=== PATIENT | female | born 1970 | race Caucasian/White ===

== ENCOUNTER 2019-12-12 09:30 | Outpatient (CLI) | payer BC, SELFPAY ==
--- NOTE | ~2019-12-12 | XR_ITS ---
XR ankle LT min 3V DATE: 12/12/2019 09:51 INDICATION: Twisted left ankle. Lateral pain. TECHNIQUE: 4 views COMPARISON: None FINDINGS: No fracture or dislocation of the ankle or disruption of the ankle mortise. No periosteal r eaction or bone destruction. Minimal posterior calcaneal enthesopathy. IMPRESSION: Minimal posterior calcaneal enthesopathy No fracture or dislocation Reviewed, dictated and finalized at location B.
== END 2019-12-12 09:31 | disposition home or self-care (01) ==
PROVIDERS: PCP Family Medicine; Visit Provider Nurse Practitioner Family
DX: M25.572 Pain in left ankle and joints of left foot (principal)
CPT/HCPCS: 73610

== ENCOUNTER 2020-03-26 08:31 | Emergency (ER) | payer BC, SELFPAY ==
[2020-03-26] VITALS (15 sets, daily range): BP systolic 101–136; BP diastolic 68–87; PULSE 68–87; RESP 12–20; TEMP 36.6; O2SAT 97–100
--- NOTE | ~2020-03-26 | XR_ITS ---
EXAMINATION: XR chest 2V DATE: 03/26/2020 09:28 INDICATION: Left chest pain. TECHNIQUE: Frontal and lateral views of the chest were obtained. COMPARISON: Chest 2 views 08/15/13 FINDINGS: There is no pneumonia, pleural effusion, or pneumothorax. Calcified right hilar and mediast inal lymph nodes are consistent with old granulomatous disease. IMPRESSION: 1. No acute cardiopulmonary disease. Reviewed, dictated and finalized at location A. TH TYPE TECHNICIAN
--- NOTE | 2020-03-26 08:53 | ECG_ITS ---
Measurements Intervals [place] Rate: 75 P: 34 AK: 148 QRS: 4 QRSD: 79 T: 21 QT: 355 QTc: 397 Interpretive Statements SINUS RHYTHM RSR' IN V1 OR V2, PROBABLY NORMAL VARIANT LOW QRS VOLTAGE IN PRECORDIAL LEADS BORDERLINE ECG Electronically Signed On 03-26-2020 11:17:58 HOME HOSPICE RN by Kevon Rosa D.O.
[2020-03-26 09:08] LABS: Basophils Percent Auto 0.5 % (0.2-1.2); Eosinophils Absolute Auto 0.2 K/mm3 (0-0.3); Eosinophils Percent Auto 2.8 % (0-4.4); Hematocrit 44.7 % (37.0-47.0); Hemoglobin 15.2 g/dL (12.0-15.0); Immature Granulocyte Absolute 0.01 K/mm3 (0.00-0.031); Immature Granulocyte Percent A 0.2 % (0-0.5); Lymphocytes Absolute Auto 2.51 K/mm3 (0.9-3.2); Lymphocytes Percent Auto 41.6 % (18.3-44.2); Mean Corpuscular Hemoglobin 31.5 pg (26-34); Mean Corpuscular Volume 92.7 fl (80-100); Monocytes Absolute Auto 0.5 K/mm3 (0.1-0.6); Monocytes Percent Auto 8.4 % (2.6-8.5); Neutrophils Absolute Auto 2.8 K/mm3 (1.3-6.7); Neutrophils Percent Auto 46.5 % (45.5-73.1); Platelet Count Result 229 k/mm3 (150-375); Red Blood Count 4.82 M/mm3 (4.2-5.4); Red Cell Distribution Width 12.7 % (11.5-14.5)
[2020-03-26] MEDS: ASPIRIN 81 MG CHEWABLE TABLET 324 MG PO (09:10)
[2020-03-26 09:18] LABS: INR 0.9; Partial Thromboplastin Time 26.8 SECONDS (22.3-36.8); Prothrombin Time 12.9 Seconds (11.1-14.7)
--- NOTE | 2020-03-26 09:23 | ED.CHESTPAIN ---
HPI - Chest Pain General Chief Complaint: Chest Pain Stated Complaint: cp Time Seen by Provider: 03/26/20 09:11 Source: patient Mode of arrival: ambulatory Limitations: no limitations History of Present Illness HPI narrative: This is a 49-year-old female that presents the emergency department for left-sided chest discomfort since last night. Reports she was trying to sleep when it started. Reports intermittent left-sided chest heaviness/ache. Nothing seems to make the pain better or worse. Is relieved on its own. Also reports she has had some trouble with indigestion since last night. Denies fever, cough, shortness of breath, or lower extremity edema. Related Data Home Medications Medication Instructions Recorded Confirmed loratadine [Claritin] 10 mg PO DAILY 03/26/20 Allergies Allergy/AdvReac Type Severity Reaction Status Date / Time hydrocodone Allergy Intermediate ITCHING Verified 03/15/20 08:56 Penicillins Allergy Unknown Unknown Verified 03/26/20 08:50 codeine AdvReac Severe SEVERE Verified 03/26/20 08:50 HEADACHE Review of Systems Review of Systems: Narrative: CONSTITUTIONAL: Denies fever CARDIOVASCULAR: Reports chest pain. Denies palpitations, or edema. RESPIRATORY: Denies cough or dyspnea. GASTROINTESTINAL: Denies abdominal pain, nausea, vomiting All systems reviewed & are unremarkable except as noted in HPI and below PMFSH Past Medical History Medical History Arthralgia BMI 29.0-29.9,adult Family History Family History Mother Hypertension Family history of diabetes mellitus in first degree relative Grandparent Family history of malignant neoplasm Other Diabetes mellitus Family history of arthritis Family history of coronary artery disease Family history of seizure disorder Social History Social History (Updated 03/26/20 @ 09:24 by Rema Manley PA-C) Smoking status: Never smoker Alcohol intake: current Substance use: never Gender identity (if verbalized by the patient): Female Exam Narrative: Exam Narrative: GENERAL: Well-appearing, well-nourished, and in no acute distress. HEAD: Normocephalic, atraumatic. EYES: EOMI. NECK: Supple. No adenopathy or masses. No carotid bruits or JVD CHEST: Clear to auscultation. No respiratory distress. No wheezes rales or rhonchi HEART: Regular rate and rhythm. No murmur heard. Normal peripheral pulses. ABDOMEN: Soft, nontender, nondistended, normal active bowel sounds. EXTREMITIES: Normal range of motion. No edema. SKIN: Warm, dry, no rash. NEURO: No focal deficits. Alert and oriented x3. PSYCH: Normal mood and affect Course Consultations Consultation #1: Spoke with patient's primary about work-up will follow-up in clinic. Date: 03/26/20 Time: 12:43 Vital Signs Vital signs: Vital Signs Pulse Rate 87 03/26/20 08:40 Respiratory Rate 14 03/26/20 08:40 Blood Pressure 136/87 03/26/20 08:40 Pulse Oximetry 100 03/26/20 08:40 Temperature 97.9 F 03/26/20 09:22 Pulse Rate 68 03/26/20 12:00 Respiratory Rate 16 03/26/20 12:00 Blood Pressure 101/68 03/26/20 09:46 Pulse Oximetry 98 03/26/20 12:00 MDM - Chest Pain MDM Narrative Medical decision making narrative: Patient presents to the emergency department for left-sided chest pain since last night. Patient is intermittent in nature. Does not seem exertional. Was associated with her reflux. She reported relief with Pepcid. Vitals are normal. CBC and metabolic panel without concerning findings. Baseline and 3-hour troponin are negative. Chest x-ray is without acute findings. EKG without concerning changes. Her heart score is a 2. Spoke with patient's primary about work-up will follow-up in clinic. Patient is stable and felt appropriate for further outpatient evaluation. She was given warnings to return the ER Lab Data Attestation:
[2020-03-26 09:24] LABS: Anion Gap 7 mmol/L (8-16); Blood Urea Nitrogen 17 mg/dL (7-17); Calcium 9.4 mg/dL (8.4-10.2); Carbon Dioxide 28 mmol/L (22-30); Chloride 103 mmol/L (98-107); Estimated CRCL calculation 80 ml/min; Estimated Glomerular Filt Rate > 60; Glucose 99 mg/dL (65-105); Potassium 4.6 mmol/L (3.4-5.0); Sodium 138 mmol/L (137-145)
[2020-03-26] MEDS: FAMOTIDINE 20 MG/2 ML VIAL IV PUSH (09:34)
[2020-03-26 09:35] LABS: Troponin I < 0.012 ng/mL (0.000-0.034)
[2020-03-26 12:26] LABS: Troponin I < 0.012 ng/mL (0.000-0.034)
== END 2020-03-26 13:00 | disposition home or self-care (01) ==
PROVIDERS: Emergency Provider Emergency Medicine; PCP Family Medicine
DX: R07.9 Chest pain, unspecified (principal); K21.9 Gastro-esophageal reflux disease without esophagitis; R94.31 Abnormal electrocardiogram [ECG] [EKG]
CPT/HCPCS: 36415; 71046; 80048; 84484; 85025; 85610; 85730; 93005; 96365; 96375; 99284; A9270; J0131

== ENCOUNTER 2020-07-09 09:10 | Outpatient (CLI) | payer BC, SELFPAY ==
--- NOTE | 2020-07-22 15:01 | WPDHOMESLEEP ---
Sleep Study - Home Unattended Date of Study: 07/09/20 Ordering Provider: Chung Zayas MD Interpreting Provider: Shannan Escoto MD Home Sleep Study Type: Apnea Link Air Height: 1.57 m Weight: 73.482 kg Body Mass Index: 29.6 Neck Circumference (inches): 14 [place]: 8 Reason for Sleep Study Difficulty falling asleep and staying asleep Sleep History Mary Key is a 49 year old female with difficulty falling asleep and staying asleep. She has tried Belsomra, a prescribed hypnotic, which caused her to wake up during the night feeling groggy. 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 She rarely snores, and only on occasion is it loud enough that others complain about it. She rarely awakens at night with heartburn, belching or coughing. She does not awaken from sleep feeling short of breath. She frequently has trouble sleep with a cold. She does not gasp for breath at night and does not have breathing problems at night observed by others. She rarely sweats excessively at night. She rarely notices her heart pounding or beating irregularly night. She does not fall asleep during the day, does not fall asleep involuntarily or while driving. She does not fall asleep some muscle tone was strong emotion. She occasionally has daytime difficulties due to excessive sleepiness. She does not feel paralyzed on waking or falling asleep. She rarely has vivid dreamlike scenes upon awakening or falling asleep. She does not feel afraid to go to sleep. She does not have nightmares. She rarely remembers her dreams. She frequently has racing thoughts through her mind. She does not feel sad or depressed. Rarely she feels anxiety. She does not have muscular tension, does not notice parts her body jerking, and does not kick at night or have crawling or aching feelings in her legs. She does not have any kind of leg pain at night. She does not have morning jaw pain. She does not grind her teeth during sleep. She occasionally is bothered by pain during the day. She frequently is awakened by pain at night, frequently wakes up feeling stiff in the morning with sore or achy muscles and pain in the neck and spine. On nights when she has severe sleeplessness, she has concentration difficulties the following day. She does have occasional morning headaches. She never awakens feeling refreshed. She has acid reflux. She has gained weight during the last year. She has chronic allergies. Normal bedtime is between 9 and 10:00 p.m. falling asleep within an hour but sometimes taking longer than 1 hour. She typically wait 6-8 times at night and sometimes even more often. When this happened she will lie in bed and try to return to sleep. She stays awake for a variable amount of time. She wakes the morning at 5:40 a.m.. She does not typically take naps. A short nap is not refreshing. She is drowsy in the morning for 3 hours or longer. Habits: Tobacco 25 years ago. Caffeine 1 coffee per day. Alcohol 1 or 2 on occasion on the weekend. Not daily. [facility] Past Medical History Medical History (Updated 07/22/20 @ 15:14 by Shannan Escoto MD) Apnea Arthralgia BMI 29.0-29.9,adult BMI 30.0-30.9,adult Hand numbness History of epilepsy during childhood Surgical History Surgical History (Updated 07/22/20 @ 15:12 by Shannan Escoto MD) History of carpal tunnel surgery Family History Family History Mother Hypertension Family history of diabetes mellitus in first degree relative Liver anomaly, congenital Grandparent Family history of malignant neoplasm Father Diabetes mellitus Kidney failure Other Family history of arthritis Family history of coronary artery disease Family history of seizure disorder Social History Social History Smoking status: Never smoker Tobacco type: cigarettes Alcohol intake: current Substance
[2020-07-22 15:26] VITALS: BMI 29.6
== END 2020-07-09 09:11 | disposition home or self-care (01) ==
LOC: ANHCSM 09:12
PROVIDERS: PCP Family Medicine; Visit Provider Family Medicine
DX: G47.8 Other sleep disorders (principal); G47.00 Insomnia, unspecified; G47.30 Sleep apnea, unspecified
CPT/HCPCS: 95806

== ENCOUNTER 2022-01-15 09:51 | Outpatient (CLI) | payer BC, SELFPAY ==
--- NOTE | ~2022-01-15 | XR_ITS ---
EXAM: XR knee LT 3V DATE: 01/15/2022 10:16 HISTORY: M25.569 - Pain in unspecified knee RECENT ROLLING/TWIST INJ . COMPARISON: 01/23/2017. FINDINGS: Normal mineralization. No fracture or dislocation. No lytic or blastic lesion. Moderate me dial joint space narrowing. Mild tricompartmental osteophytosis. No erosion or periosteal change. Sof t tissues within normal limits. Moderate volume joint fluid. IMPRESSION: Moderate left knee joint effusion. No acute osseous finding in the left knee. Reviewed, dictated and finalized at location K.
== END 2022-01-15 09:52 | disposition home or self-care (01) ==
PROVIDERS: PCP Family Medicine; Visit Provider Nurse Practitioner Family
DX: M25.362 Other instability, left knee (principal); M17.12 Unilateral primary osteoarthritis, left knee
CPT/HCPCS: 73562

== ENCOUNTER 2022-01-30 09:16 | Outpatient (CLI) | payer BC, SELFPAY ==
--- NOTE | ~2022-01-30 | MR_ITS ---
EXAMINATION: MR knee LT wo con DATE: 01/30/2022 09:53 INDICATION: Left knee instability. Left knee injury and pain and swelling. TECHNIQUE: Magnetic resonance imaging (MRI) of the left knee was performed without intravenous contra st. Sequences included axial PD-weighted FS FSE, coronal PD-weighted FSE and PD-weighted FS FSE, sagi ttal PD-weighted FSE, and sagittal T2-weighted FS FSE. COMPARISON: Left knee radiographs 01/15/22, MRI 02/09/2017 FINDINGS: Medial compartment: Medial meniscus is normal. There is shallow partial-thickness cartilage loss of femoral condyle later ally. Tibial cartilage is normal. There are tiny osteophytes. Lateral compartment: Lateral meniscus is normal. Lateral compartment cartilage is normal. Patellofemoral compartment: There is deep partial thickness cartilage loss of patellar medial facet. Trochlear cartilage is sara l. Ligaments and tendons: Anterior cruciate ligament demonstrates at least some discontinuous fibers. Some fibers remain steepe r than Blumensaat line. Posterior fusion ligament is normal. Medial collateral ligament is normal. Th ere are changes of prior sprain of fibular collateral ligament characterized by increased signal inte nsity proximally. There is mild patellar tendinopathy. Fluid: There is a moderate-sized knee joint effusion. There is trace fluid in a Luther's cyst. Osseous/other: There is edema-like marrow signal intensity in posterior medial femoral condyle, medial aspect of med ial femoral condyle, lateral tibial condyle with a posterior predominance, and notch of lateral femor al condyle, consistent with contusions. IMPRESSION: 1. Tear of anterior cruciate ligament, which is at least partial. 2. Moderate patellar chondrosis and mild chondrosis of medial compartment. 3. Moderate-sized knee joint effusion. Reviewed, dictated and finalized at location A.
== END 2022-01-30 09:17 | disposition home or self-care (01) ==
PROVIDERS: PCP Family Medicine; Visit Provider Nurse Practitioner Family
DX: M25.569 Pain in unspecified knee (principal); M25.369 Other instability, unspecified knee; S83.512A Sprain of anterior cruciate ligament of left knee, initial encounter; M22.2X2 Patellofemoral disorders, left knee; M25.462 Effusion, left knee
CPT/HCPCS: 73721

== ENCOUNTER → 2023-01-26 10:28 | Outpatient (CLI) | payer BC, SELFPAY ==
--- NOTE | ~2023-01-26 | CT_ITS ---
EXAMINATION: CT sinus wo con DATE: 01/26/2023 10:39 INDICATION: Nasal congestion, recent COVID 19 TECHNIQUE: Computed tomography (CT) of the paranasal sinuses was performed without intravenous contra st. The dose-length product (DLP) was 387.90 mGy-cm. Iterative reconstruction was used. COMPARISON: None FINDINGS: There is normal development and pneumatization of the paranasal sinuses. There is a 5 mm po lyp or mucous retention cyst of the left maxillary sinus. There is mild mucosal thickening in the rig ht maxillary sinus. The frontal, sphenoid, and ethmoid sinuses are clear. The bilateral ostiomeatal c omplexes are patent. Visualized soft tissues are unremarkable. IMPRESSION: 1. Mild sinus disease of the maxillary sinuses. Reviewed, dictated and finalized at location B.
== END ==
PROVIDERS: PCP Family Medicine; Visit Provider Otolaryngology
DX: R09.81 Nasal congestion (principal)
CPT/HCPCS: 70486